=== PATIENT | male | born 1990 | race Caucasian/White ===

== ENCOUNTER 2017-01-24 11:35 | Emergency (ER) | payer OTHER ==
[~2017-01-24] VITALS: Ht 170.2 cm; Wt 56.8 kg
[~2017-01-24 11:35] MED LIST: ACET325T46 PO; ALBU8.5H2 INHALATION; ASPI81TA53 PO; DOCU100C23 PO; KETO10TA PO; LIP40 PO; METO25TA6 PO; OXYC1TAB24 PO; PANT40TA3 PO; SENN8.6T11 PO
[2017-01-24 11:38] VITALS: BP 113/69; PULSE 81; RESP 16; O2SAT 100
[2017-01-24] MEDS ORDERED: DILT120C52 PO (11:41)
[2017-01-24] MEDS ORDERED: MAGN500C4 PO (11:41)
--- NOTE | 2017-01-24 12:53 | ED.REPORT ---
HPI-Rash / Abscess Date of Service Jan 24, 2017 ED Provider: Toño Rosales PA-C Haim is a 26-year-old male with a remote history of IV drug use as well as endocarditis and hepatitis C who presents with a chief complaint of an abscess on his chest. He states that is on his left anterior chest has been there for approximately 2 weeks. He has tried to pop it a couple of times but it keeps returning. Denies diabetes, HIV, immunosuppression, fever, chills, malaise, abdominal pain, vomiting. Reports taking blood thinners for his prosthetic valve but cannot recall what type. States that he has been sober for 2 years. Nursing Notes Stated Complaint: POSSIBLE ABSCESS ON CHEST Chief Complaint: Skin Rash/Abscess Nursing Notes Reviewed: Yes Allergies: Coded Allergies: No Known Allergies (Unverified , 01/24/17) Scheduled Diltiazem ER (Cartia XT) 120 Mg Cap.er.24h 120 MG PO DAILY Magnesium Oxide (Magnesium) 500 Mg Capsule 500 MG PO DAILY Sulfamethoxazole/Trimeth 800-160 mg (Bactrim DS) 1 Each Tablet 1 TABLET PO BID General Time Seen by MD: 12:07 Chief Complaint Abscess Past Medical History Past Medical History Notes: PCP: Dr. 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 Chest: 2 cm area of redness, swelling, tenderness and fluctuance with a central area of crust over the left pectoral between nipple and axilla. No surrounding erythema, tenderness. Head: Atraumatic, normocephalic. Eyes: No scleral icterus or injection. No discharge. Vision grossly intact. ENT: Voice clear, hearing grossly intact. Respiratory: Regular rate and rhythm. No respiratory distress. No increased work of breathing, speaks in complete sentences. Cardiovascular: Regular rate and rhythm, without murmur, gallop or rub despite careful auscultation. No pedal edema. Skin: Warm and dry. Neurological: Grossly nonfocal. Psychological: Alert and oriented. Speech appropriate, linear and logical. Behavior appropriate. Initial Vital Signs Vital Signs (First) Date Time Temp Pulse Resp B/P Pulse Ox O2 Delivery O2 Flow Rate FiO2 01/24/17 11:38 37.3 81 16 113/69 100 Room Air Initial VS: Reviewed, Vital signs normal Procedures Incision & Drainage Abscess Procedure Performed by: Allied health pract Consent / Setup / Site Prep: Informed consent provided, Consent from patient , Hand hygiene observed Skin Preparation Agent: Shurclens Local Anesthesia: Lidocaine w epi 1%, 2cc, 27g needle Incised Abscess with Scalpel: #11 Pus Drained: Medium, Purulent discharge Irrigation: No Post-Procedure / Complications: Packing placed, Culture obtained, Gram stain ordered, Dressing applied, No complications, Condition improved, Tolerated procedure well, Patient stable Re-Eval/Medical Decision Med Decision/Clinical Course 18-year-old male with a history of IV drug use, endocarditis and hepatitis C presents with an abscess on his left anterior chest has been present for approximately 2 weeks. The patient reports that he has popped it twice, but it keeps returning. History and physical reassuring for sepsis, endocarditis, cellulitis. De-roofed the abscess with an 11 blade, expressed purulent discharge and placed packing. Culture sent. Dressed with antibiotic ointment and gauze. Discussed the case with , and we agree that in light of his history of endocarditis prophylactic antibiotics are appropriate. Prescribed Bactrim DS twice a day 7 days. Provided wound care instructions as well as primary care and emergency return precautions. Patient understands and agrees with the plan. Discharge & Departure Impression: Primary Impression: Abscess Disposition: Home Discharge Condition All VS Reviewed: Yes Condition: Stable Patient Instructions: Abscess Incision and Drainage (ED) Additional Instructions: Assessment for an abscess in the emergency department. Physical examination reveals an abscess on her left chest. We cut it open and significant amount of pus out. I also placed packing, and dressed it with antibiotic ointment and gauze. I believe you are stable and safe to be discharged home. Because of your history of infection and the fact that this wound is drained several times and is still persistent, I will prescribed an antibiotic to be taken for the next 7 days. I will prescribe Bactrim DS to be taken twice a day. Please use all of the medications supplied. Keep the affected area clean and dry for the next 24 hours. After that you can wash gently with soap and water, replace antibiotic ointment and gauze dressing. If, after 2 days the gauze packing has not fallen out, feel free to remove it on your own or return for a wound check. Be vigilant for signs of infection. Small amount of redness and clear or pink drainage is normal. However fever, increased pain, swelling, redness or the appearance of a significant amount of pus, especially after 2 or 3 days indicates worsening infection. Please return to the emergency department for these or any other new or worsening symptoms. Follow-up with your primary care provider if this has not resolved in about a week. Referrals: Nikky Davis MD (PCP) EDSupervising Provider for APC: Chelle Perez MD Attending Statement Patient seen and examined. I&D done by georgia Acosta Careful cardiac auscultation reveals no murmurs clicks or opening snaps Because of his endocarditis and open heart surgery history we will opt to prophylax with antibiotics in light of the I&D drainage. No evidence of overt sepsis cellulitis or endocarditis this time. copies to: Nikky Davis MD, Seth PA-C Jan 24, 2017 12:53 Chelle Perez MD Jan 24, 2017 13:14
[2017-01-24] MEDS ORDERED: SULF1TAB7 PO ×2 (13:02→13:09)
[2017-01-24] MEDS ORDERED: CEPH500C PO (13:02)
== END 2017-01-24 13:17 | disposition home or self-care (01) ==
LOC: SED 11:35
DX: L02.213 Cutaneous abscess of chest wall (principal); F17.200 Nicotine dependence, unspecified, uncomplicated; Z59.0 Homelessness; Z95.2 Presence of prosthetic heart valve; Z86.79 Personal history of other diseases of the circulatory system; Z86.19 Personal history of other infectious and parasitic diseases; Z79.01 Long term (current) use of anticoagulants

== ENCOUNTER 2017-05-10 06:20 | Emergency (ER) | payer OTHER ==
[~2017-05-10] VITALS: Ht 180.3 cm; Wt 61.4 kg
[~2017-05-10 06:20] MED LIST changes: -ACET325T46 PO; -ALBU8.5H2 INHALATION; -ASPI81TA53 PO; +DILT120C52 PO; -DOCU100C23 PO; -KETO10TA PO; -LIP40 PO; +MAGN500C4 PO; -METO25TA6 PO; -OXYC1TAB24 PO; -PANT40TA3 PO; -SENN8.6T11 PO; +SULF1TAB7 PO
[2017-05-10 06:26] VITALS: BP 194/165; PULSE 107; RESP 16; O2SAT 100
--- NOTE | 2017-05-10 06:52 | ED.REPORT ---
HPI-Psychiatric Illness Date of Service May 10, 2017 ED Provider: Richard Lynch MD A 26 year old male with a history of anxiety, IV drug abuse, ADHD, depression, endocarditis and hepatitis C presents to the ED via EMS following a panic attack that began just prior to arrival. Per nursing note, EMS report that the patient experienced carpal pedal spasms and hyperventilation en route with a systolic BP in the 140's. Patient denies any suicidal ideation at this time but repeatedly states, "I don't want to do this any more" upon arrival to the ED. He denies any substance abuse this evening. History is limited due to patient cooperation. Nursing Notes Stated Complaint: ANXIETY/PANIC ATTACK Chief Complaint: Psychiatric Complaint Nursing Notes Reviewed: Yes Allergies: Coded Allergies: No Known Allergies (Unverified , 01/24/17) Scheduled Diltiazem ER (Cartia XT) 120 Mg Cap.er.24h 120 MG PO DAILY Magnesium Oxide (Magnesium) 500 Mg Capsule 500 MG PO DAILY Sulfamethoxazole/Trimeth 800-160 mg (Bactrim DS) 1 Each Tablet 1 TABLET PO BID General Time Seen by MD: 06:49 Chief Complaint Anxious Hx Obtained From: Patient, EMS Arrived By: Ambulance Onset Occurred: Just prior to arrival Symptom Duration: Since onset Progression Since Onset: Unchanged Associated with: Reports: Anxiety, Denies: Illicit drug use Pertinent Negative: Pt denies other symptoms Recent Healthcare: No recent doctor visit Risk-Psychiatric Illness Suicide Risk Stratification RF Statements: Risk factors reviewed Past Medical History Past Medical History Notes: PCP: Dr. Davis Past Medical History SVT 1. IVDA 2. Endocarditis 3. Severe AI 4. Hepitis C 5. ADHD Past Surgical History 1. AAA repair 2011 2. 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 Physical Exam Initial Vital Signs Vital Signs (First) Date Time Temp Pulse Resp B/P Pulse Ox O2 Delivery O2 Flow Rate FiO2 05/10/17 06:26 36.8 107 16 194/165 100 Room Air Initial VS: Reviewed Neck: Supple, Non-tender, Full range of motion Extremities: Vascular intact, Neuro intact, No swelling, No tenderness Skin: Warm, Dry, No cyanosis General/Constitutional: Awake, Alert GENERAL: Crying and hyperventilating Neurologic: Oriented X3, No motor deficits, No sensory deficits Psychiatric: Not suicidal, Not homicidal Abnormal Mood/Affect: Positive: Anxious Head / Eyes: Atraumatic, Normocephalic, PERRL Respiratory / Chest: Atraumatic, Breath sounds NL, Breath sounds = bilat, No respiratory distress Cardiovascular: Regular rhythm, Heart sounds NL, Peripheral circulation NL, Pulses = bilaterally Heart Rate / Rhythm: Positive: Tachycardia Interpretation & Diagnostics Lab Results Interpretation Result Diagram: 05/10/17 1413 05/10/17 1413 Test 05/10/17 14:13 White Blood Count 10.5th/mm3 (3.8-10.1) Red Blood Count 4.56mil/mm3 (4.40-5.80) Hemoglobin 13.7g/dL (13.8-17.2) Hematocrit 39.3% (41.0-50.0) Mean Corpuscular Volume 86.2fL (81-100) Mean Corpuscular Hemoglobin 30.0pg (27.0-35.0) Mean Corpuscular Hemoglobin Concent 34.9% (32.0-37.0) Red Cell Distribution Width 12.3% (12.3-15.4) Platelet Count 224bil/L (150-400) Neutrophils (%) (Auto) 65.5% (40-74) Lymphocytes (%) (Auto) 22.0% (14-46) Monocytes (%) (Auto) 11.7% (4-12) Eosinophils (%) (Auto) 0.5% (0-5) Basophils (%) (Auto) 0.2% (0-3) Sodium Level 140mEq/L (134-144) Potassium Level 4.0mEq/L (3.5-5.2) Chloride Level 103mEq/L (97-108) Carbon Dioxide Level 22mmol/L (18-29) Blood Urea Nitrogen 20mg/dL (6-20) Creatinine 0.86mg/dL (0.76-1.27) Estimat Glomerular Filtration Rate 113mL/min (>59) Glucose Level 78mg/dL (60-99) Calcium Level 9.4mg/dL (8.5-10.1) Total Bilirubin 1.1mg/dL (0.0-1.2) Aspartate Amino Transf (AST/SGOT) 40U/L (0-50) Alanine Aminotransferase (ALT/SGPT) 14U/L (0-44) Alkaline Phosphatase 51U/L (25-150) Total Protein 7.0g/dL (6.4-8.4) Albumin 4.5g/dL (3.4-5.0) Thyroid Stimulating Hormone (TSH) 0.995uIU/mL (0.450-4.500) Hold Payton Top Tube Received (Received) ECG Interpretation ECG Interpretation: Sinus Rhythm Rate 87 bpm Early repol pattern Q waves in V1 and V2 unchanged from prior Time: 18:30 Interpreted by: ED physician Normal ECG Interpretation: No change from prior ECGs (05/10/17) Re-Eval/Medical Decision Med Decision/Clinical Course 26-year-old male history of IV drug use and anxiety presenting after "panic attack." Paramedics were called by his friends for him being extremely anxious. On arrival patient was crying and wailing complaining of anxiety. He had no other complaints. He denied IV drug use. He denied any thoughts of hurting himself or others. Given his level of anxiety and agitation he was given 1 mg of Ativan and 50 mg of Benadryl and slept throughout the remainder remainder of my shift. His urine is pending. His labs are pending. He will be signed out to Dr. Khalif Arredondo at change of shift. COMPLIANCE PROGRAM MANAGER has not seen patient. Re-Evaluation/Progress #1: Time of Eval: 08:00 Patient Status: Condition improved Re-Evaluation/Progress Note: Patient is rechecked. He is sleeping comfortably after receiving Ativan. Re-Evaluation/Progress #2: )( Re-Eval Psychiatric: No danger to self, No danger to others, No suicidal ideation, No homicidal ideation Patient Status: Condition improved Re-Evaluation/Progress Note: Patient is rechecked. Anxiety has improved. Re-Evaluation/Progress #3: Time of Eval: 13:57 Re-Evaluation/Progress Note: Pt is somulent upon recheck. Counseled Regarding: Diagnosis, Lab results Discharge & Departure Shift Change Sign-Out Patient Care Transferred: Yes Discussed Complaint(s): Yes Laboratory Evaluation: Lab evaluation discussed Additonal Information: Dr. Arredondo Impression: Primary Impression: Anxiety Additional Impression: Agitated Discharge Condition All VS Reviewed: Yes Condition: Stable Referrals: Nikky Davis MD (PCP) Care Transferred to: Dr. Arredondo Care Transferred at: 15:00 Scribe Attestation Portions of this note were transcribed by Junie Nolasco. I, Dr. Lynch personally performed the history, physical exam and medical decision-making; I reviewed and confirmed the accuracy of the information in the transcribed note. Signed by: Elsy Knutson, 05/10/17 1516. copies to: Nikky Davis MD, Ben M MD May 10, 2017 06:52 JUNIE NOLASCO May 10, 2017 06:59
[2017-05-10 14:22] LABS: BASOPHILS % (AUTO) 0.2 % (0-3); EOSINOPHILS % (AUTO) 0.5 % (0-5); MONOCYTES % (AUTO) 11.7 % (4-12); Mean Corpuscular Volume 86.2 fL (81-100); NEUTROPHILS % (AUTO) 65.5 % (40-74); Platelet Count 224 bil/L (150-400)
[2017-05-10 14:49] VITALS: BP 105/63; PULSE 15; RESP 16; O2SAT 98
[2017-05-10 19:02] VITALS: BP 105/68; PULSE 82; RESP 14; O2SAT 100
== END 2017-05-10 18:40 | disposition home or self-care (01) ==
LOC: EDBD 06:20 → SED 06:20
DX: F41.9 Anxiety disorder, unspecified (principal); R45.1 Restlessness and agitation; F17.200 Nicotine dependence, unspecified, uncomplicated; Z79.899 Other long term (current) drug therapy
CPT/HCPCS: 36415; 80053; 81002; 82075; 84443; 85025; 93005; 96372; 99284; J1200; J2060